=== PATIENT | female | born 1990 | race American Indian/Alaskan Native ===

== ENCOUNTER 2017-12-31 18:52 | Emergency (ER) | payer OTHER ==
[2017-12-31 19:25] VITALS: BP 138/78
[2017-12-31 19:55] LABS: Bacteria,Urine 1+ /HPF (Negative); Bilirubin,Urine NEG (Negative); Blood,Urine MOD (Negative); Color,Urine Yellow (Yellow); Mucus,Urine 2+ /HPF; Urobilinogen,Urine < 2.0 mg/dL (<2.0)
--- NOTE | 2017-12-31 20:38 | XRay Report ---
FINAL REPORT EXAM: XR SPINE LUMBOSACRAL 2-3V HISTORY: lower back pain TECHNIQUE: Three views lumbosacral spine Comparison: None FINDINGS: Normal lumbar lordosis. Vertebral body heights and disc space heights are maintained. No scoliosis. SI joints are open. Sacral arches are intact. There is minimal retrolisthesis L5 on S1. No suspicious calcifications. IMPRESSION: 2 millimeter retrolisthesis L5 on S1. Otherwise, normal plain-film series lumbosacral spine.
[2017-12-31] MEDS ORDERED: ULTRAM PO ONE (22:28)
--- NOTE | 2017-12-31 22:36 | Emergency Department Report ---
ED Back Pain/Injury HPI - General Chief Complaint: Back Pain/Injury Stated Complaint: LOWER BACK PAIN Time Seen by Provider: 12/31/17 22:26 Source: patient, family Limitations: No Limitations - History of Present Illness Initial Comments: pt is a 27 y/o aaf who presents for low back pain and spasm x 1 week after lift large TV by herself with moving, pt describes pain as 4/10 aching spasm exacerbated by bending and twisting there is no numbness no weakness no tingling no swelling no loss or decrease in bowel or bladder function. MD Complaint: back pain Onset/Timin -: week(s) Similar Symptoms Previously: Yes Place: home Radiation: none Severity: moderate Severity scale (0 -10): 4 Quality: aching, other (spasm ) Consistency: intermittent Improves With: other (rest) Worsens With: movement, other (bending twisting ) Context: while lifting Associated Symptoms: denies: weakness, numbness, difficulty walking, incontinence - Related Data Home Medications Medication Instructions Recorded Confirmed Last Taken Citalopram Hydrobromide [Celexa] 20 mg PO DAILY 08/24/14 10/23/14 09/02/14 Previous Rx's Medication Instructions Recorded Last Taken Type Fluticasone [Flonase] 1 spray NS QDAY #1 bottle 08/24/14 09/02/14 Rx Loratadine [Claritin] 10 mg PO DAILY #30 tablet 08/24/14 09/02/14 Rx Doxycycline Monohydrate 100 mg PO Q12H #14 tablet 10/23/14 Unknown Rx HYDROcodone/APAP 5-325 [[place] 1 each PO Q8H PRN #16 tablet 10/23/14 Unknown Rx 5-325 mg TAB] Hydrocortisone 2.5% [Hytone 2.5% 1 applicatio TP BID #15 gm 10/23/14 Unknown Rx CREAM] Diphenoxylate/Atropine [Lomotil] 1 tab PO Q4H PRN #4 tablet 07/06/15 Unknown Rx Cyclobenzaprine [Flexeril] 10 mg PO BID PRN #20 tablet 12/31/17 Unknown Rx Menthol/Camphor [[place] 1 applic TP TID PRN #1 tube 12/31/17 Unknown Rx Ointment] Naproxen [EC-Naprosyn] 500 mg PO BID PRN #30 tablet. 12/31/17 Unknown Rx Allergies Allergy/AdvReac Type Severity Reaction Status Date / Time No Known Allergies Allergy Verified 07/05/15 23:43 ED Review of Systems ROS: Stated complaint: LOWER BACK PAIN Other details as noted in HPI Constitutional: denies: chills, fever Eyes: denies: eye pain, eye discharge, vision change ENT: denies: ear pain, throat pain Respiratory: denies: cough, shortness of breath, wheezing Cardiovascular: denies: chest pain, palpitations Endocrine: no symptoms reported Gastrointestinal: denies: abdominal pain, nausea, diarrhea Genitourinary: denies: urgency, dysuria, discharge Musculoskeletal: back pain, arthralgia. denies: joint swelling, myalgia Skin: denies: rash, lesions Neurological: denies: headache, weakness, paresthesias Psychiatric: denies: anxiety, depression Hematological/Lymphatic: denies: easy bleeding, easy bruising ED Past Medical Hx - Past Medical History Hx Headaches / Migraines: Yes Hx Psychiatric Treatment: Yes (depression) Additional medical history: Eczema - Surgical History Additional Surgical History: X 2 - Social History Smoking Status: Never Smoker Substance Use Type: None - Medications Home Medications: Home Medications Medication Instructions Recorded Confirmed Last Taken Type Citalopram Hydrobromide [Celexa] 20 mg PO DAILY 08/24/14 10/23/14 09/02/14 History Fluticasone [Flonase] 1 spray NS QDAY #1 bottle 08/24/14 10/23/14 09/02/14 Rx Loratadine [Claritin] 10 mg PO DAILY #30 tablet 08/24/14 10/23/14 09/02/14 Rx Doxycycline Monohydrate 100 mg PO Q12H #14 tablet 10/23/14 Unknown Rx HYDROcodone/APAP 5-325 [[place] 1 each PO Q8H PRN #16 tablet 10/23/14 Unknown Rx 5-325 mg TAB] Hydrocortisone 2.5% [Hytone 2.5% 1 applicatio TP BID #15 gm 10/23/14 Unknown Rx CREAM] Diphenoxylate/Atropine [Lomotil] 1 tab PO Q4H PRN #4 tablet 07/06/15 Unknown Rx Cyclobenzaprine [Flexeril] 10 mg PO BID PRN #20 tablet 12/31/17 Unknown Rx Menthol/Camphor [[place] 1 applic TP TID PRN #1 tube 12/31/17 Unknown Rx Ointment] Naproxen [EC-Naprosyn] 500 mg PO BID PRN #30 tablet. 12/31/17 Unknown Rx ED Physical Exam - General Limitations: No Limitations General appearance: alert, in no apparent distress - Head Head exam: Present: atraumatic, normocephalic - Eye Eye exam: Present: normal appearance - ENT ENT exam: Present: mucous membranes moist - Neck Neck exam: Present: normal inspection - Respiratory Respiratory exam: Present: normal lung sounds bilaterally. Absent: respiratory distress - Cardiovascular Cardiovascular Exam: Present: regular rate, normal rhythm. Absent: systolic murmur, diastolic murmur, rubs, gallop - GI/Abdominal GI/Abdominal exam: Present: soft, normal bowel sounds - Rectal Rectal exam: Present: deferred - Extremities Exam Extremities exam: Present: normal inspection, full ROM. Absent: tenderness - Back Exam Back exam: Present: normal inspection, full ROM, tenderness (mild paraspinus muscle tenderness to deep palpation right, no posterior vertebral point tenderness no swelling no deformity no ecchymosis mild pain with straight leg right there is no numbness or weakness no saddle numbness ) - Expanded Back Exam Expanded Back exam: Absent: saddle anesthesia Back exam: Positive Straight Leg Raise: Right, Negative Straight Leg Raising: Left - Neurological Exam Neurological exam: Present: alert, oriented X3 - Expanded Neurological Exam Expanded Patient oriented to: Present: person, place, time Speech: Present: fluid speech Cranial nerves: EOM's Intact: Normal, Gag Reflex: Normal, Tongue Deviation: Normal, Nystagmus: Normal, Facial Sensation: Normal Cerebellar function: Heel to Muse: Normal Upper motor neuron: Jimmy Neglect: Normal, Pronator Drift: Normal, Babinski Sign : Normal, Sensory Extinction: Normal Sensory exam: Lower Extremity Light Touch: Normal, Lower Extremity Temperature: Normal, LE 2 Point Discrimination: Normal Motor strength exam: RUE: 5, LUE: 5, RLE: 5, LLE: 5 DTR: knee (R): 2+, knee (L): 2+, ankle (R): 2+, ankle (L): 2+ Best Eye Response ([place]): (4) open spontaneously Best Motor Response ([place]): (6) obeys commands Best Verbal Response ([place]): (5) oriented [place] Total: 15 - Psychiatric Psychiatric exam: Present: normal affect, normal mood - Skin Skin exam: Present: warm, dry, intact, normal color. Absent: rash ED Course Vital Signs 12/31/17 12/31/17 19:19 19:25 Temperature 98.4 F 98.4 F Pulse Rate 73 72 Respiratory 18 Rate Blood Pressure 138/78 138/78 O2 Sat by Pulse 98 99 Oximetry ED Medical Decision Making - Radiology Data Radiology results: report reviewed, image reviewed 2mm mild l5 s1 retrolisthesis - Medical Decision Making this is a lumbar strain, pt is ambulatory to baseline no weakness no numbness no saddle numbness pain is reproducible to deep palpation, there is no cva tenderness, pt is ending menses, denies dysuria frequency or urgency. Critical care attestation.: If time is entered above; I have spent that time in minutes in the direct care of this critically ill patient, excluding procedure time. ED Disposition Clinical Impression: Lumbar strain Qualifiers: Encounter type: initial encounter Qualified Code(s): S39.012A - Strain of muscle, fascia and tendon of lower back, initial encounter Disposition: - TO HOME OR SELFCARE Is pt being admited?: No Does the pt Need Aspirin: No Condition: Good Instructions: Muscle Strain (ED), Low Back Strain (ED), Core Strengthening Exercises (GEN) Prescriptions: Cyclobenzaprine [Flexeril] 10 mg PO BID PRN #20 tablet PRN Reason: Muscle Spasm Menthol/Camphor [[place] Ointment] 1 applic TP TID PRN #1 tube PRN Reason: Pain , Severe (7-10) Naproxen [EC-Naprosyn] 500 mg PO BID PRN #30 tablet. PRN Reason: Pain Referrals: [facility] [Outside] - 3-5 Days Forms: Work/School Release Form(ED) Time of Disposition: 22:43
== END 2017-12-31 22:50 | disposition home or self-care (01) ==
LOC: ED 18:52
DX: S39.012A Strain of muscle, fascia and tendon of lower back, initial encounter (principal); F32.9 Major depressive disorder, single episode, unspecified; G43.909 Migraine, unspecified, not intractable, without status migrainosus; X50.0XXA Overexertion from strenuous movement or load, initial encounter; Y93.89 Activity, other specified; Y92.89 Other specified places as the place of occurrence of the external cause; Y99.8 Other external cause status
CPT/HCPCS: 72100; 81001; 99284

== ENCOUNTER 2018-01-05 23:33 | Emergency (ER) | payer OTHER ==
[2018-01-06 01:17] LABS: Basophils % (Auto) 0.5 % (0.0-1.8); Eosinophils # (Auto) 0.2 K/mm3 (0.0-0.4); Eosinophils % (Auto) 2.3 % (0.0-4.3); Hematocrit 39.9 % (30.3-42.9); Hemoglobin 12.6 gm/dl (10.1-14.3); Lymphocytes # (Auto) 4.1 K/mm3 (1.2-5.4); Lymphocytes % (Auto) 53.6 % (13.4-35.0); Mean Corpuscular HGB Conc 32 % (30-34); Mean Corpuscular Volume 79 fl (79-97); Monocytes # (Auto) 0.4 K/mm3 (0.0-0.8); Monocytes % (Auto) 5.4 % (0.0-7.3); Platelet Count 388 K/mm3 (140-440); Red Blood Count 5.07 M/mm3 (3.65-5.03); Red Cell Distribution Width 13.6 % (13.2-15.2)
[2018-01-06 01:24] LABS: Mean Corpuscular Hemoglobin 25 pg (28-32)
[2018-01-06 01:34] LABS: BUN/Creatinine Ratio 18; Blood Urea Nitrogen 11 mg/dL (7-17); Calcium 8.5 mg/dL (8.4-10.2); Hemolysis Index 5
[2018-01-06 02:25] LABS: Bilirubin,Urine NEG (Negative); Blood,Urine NEG (Negative); Color,Urine Yellow (Yellow); Mucus,Urine FEW /HPF; Protein,Urine <15 mg/dL mg/dL (Negative); Urobilinogen,Urine < 2.0 mg/dL (<2.0)
[2018-01-06] MEDS ORDERED: TORADOL IM ONE (03:46)
[2018-01-06] MEDS ORDERED: ULTRAM PO ONE (03:46)
[2018-01-06] MEDS ORDERED: MACROBID PO ONE (03:46)
--- NOTE | 2018-01-06 04:27 | Emergency Department Report ---
ED Back Pain/Injury HPI - General Chief Complaint: Back Pain/Injury Stated Complaint: BACK PAIN Time Seen by Provider: 01/06/18 03:09 Source: patient Limitations: No Limitations - History of Present Illness Initial Comments: 27 year old female with a past medical history migraines, depression, and eczema presents to Hospital complaining of lower back pain 2 weeks. Patient was here on the with complaints of back pain times 1 week lifting a heavy TV. She reports that pain has worsened. Pain is constant, aching, worse with palpation and movement. Pain is rated 10/10 in intensity. She denies paresthesia, numbness, weakness, dysuria, fever, nausea, vomiting, or hematuria. She has taken the recently prescribed Naprosyn and Flexeril with some improvement. MD Complaint: back pain - Related Data Home Medications Medication Instructions Recorded Confirmed Last Taken Citalopram Hydrobromide [Celexa] 20 mg PO DAILY 08/24/14 10/23/14 09/02/14 Previous Rx's Medication Instructions Recorded Last Taken Type Fluticasone [Flonase] 1 spray NS QDAY #1 bottle 08/24/14 09/02/14 Rx Loratadine [Claritin] 10 mg PO DAILY #30 tablet 08/24/14 09/02/14 Rx Doxycycline Monohydrate 100 mg PO Q12H #14 tablet 10/23/14 Unknown Rx HYDROcodone/APAP 5-325 [[place] 1 each PO Q8H PRN #16 tablet 10/23/14 Unknown Rx 5-325 mg TAB] Hydrocortisone 2.5% [Hytone 2.5% 1 applicatio TP BID #15 gm 10/23/14 Unknown Rx CREAM] Diphenoxylate/Atropine [Lomotil] 1 tab PO Q4H PRN #4 tablet 07/06/15 Unknown Rx Cyclobenzaprine [Flexeril] 10 mg PO BID PRN #20 tablet 12/31/17 Unknown Rx Menthol/Camphor [[place] 1 applic TP TID PRN #1 tube 12/31/17 Unknown Rx Ointment] Naproxen [EC-Naprosyn] 500 mg PO BID PRN #30 tablet. 12/31/17 Unknown Rx Nitrofurantoin Monohyd/M-Cryst 100 mg PO BID #10 capsule 01/06/18 Unknown Rx [Macrobid 100 mg Capsule] traMADol [Ultram 50 MG tab] 50 mg PO Q6HR PRN #20 tablet 01/06/18 Unknown Rx Allergies Allergy/AdvReac Type Severity Reaction Status Date / Time No Known Allergies Allergy Verified 07/05/15 23:43 ED Review of Systems ROS: Stated complaint: BACK PAIN Other details as noted in HPI Comment: All other systems reviewed and negative ED Past Medical Hx - Past Medical History Previous Medical History?: Yes Hx Headaches / Migraines: Yes Hx Psychiatric Treatment: Yes (depression) Additional medical history: Eczema - Surgical History Past Surgical History?: Yes Additional Surgical History: X 2 - Social History Smoking Status: Current Every Day Smoker Substance Use Type: None - Medications Home Medications: Home Medications Medication Instructions Recorded Confirmed Last Taken Type Citalopram Hydrobromide [Celexa] 20 mg PO DAILY 08/24/14 10/23/14 09/02/14 History Fluticasone [Flonase] 1 spray NS QDAY #1 bottle 08/24/14 10/23/14 09/02/14 Rx Loratadine [Claritin] 10 mg PO DAILY #30 tablet 08/24/14 10/23/14 09/02/14 Rx Doxycycline Monohydrate 100 mg PO Q12H #14 tablet 10/23/14 Unknown Rx HYDROcodone/APAP 5-325 [[place] 1 each PO Q8H PRN #16 tablet 10/23/14 Unknown Rx 5-325 mg TAB] Hydrocortisone 2.5% [Hytone 2.5% 1 applicatio TP BID #15 gm 10/23/14 Unknown Rx CREAM] Diphenoxylate/Atropine [Lomotil] 1 tab PO Q4H PRN #4 tablet 07/06/15 Unknown Rx Cyclobenzaprine [Flexeril] 10 mg PO BID PRN #20 tablet 12/31/17 Unknown Rx Menthol/Camphor [[place] 1 applic TP TID PRN #1 tube 12/31/17 Unknown Rx Ointment] Naproxen [EC-Naprosyn] 500 mg PO BID PRN #30 tablet. 12/31/17 Unknown Rx Nitrofurantoin Monohyd/M-Cryst 100 mg PO BID #10 capsule 01/06/18 Unknown Rx [Macrobid 100 mg Capsule] traMADol [Ultram 50 MG tab] 50 mg PO Q6HR PRN #20 tablet 01/06/18 Unknown Rx ED Physical Exam - General Limitations: No Limitations - Other Other exam information: General: No limitations, patient is alert in no acute distress Head exam: Atraumatic, normocephalic Eyes exam: Normal appearance, pupils equal reactive to light, extraocular movements intact ENT: Moist mucous membrane, normal oropharynx Neck exam: Normal inspection, full range of motion, no meningismus nontender Respiratory exam: Clear to auscultation bilateral, no wheezes, rales, crackles Cardiovascular: Normal rate and rhythm, normal heart sounds Abdomen: Soft, nondistended, and nontender, with normal bowel sounds, no rebound, or guarding Extremity: Full range of motion normal inspection no deformity Back: Normal Inspection, full range of motion, reducible tenderness across lower back muscle Neurologic: Alert, oriented x3, cranial nerves intact, no motor or sensory deficit Psychiatric: normal affect, normal mood Skin: Warm, dry, intact ED Course Vital Signs 01/06/18 01/06/18 01/06/18 00:37 01:12 03:15 Temperature 98.0 F 98 F 98.2 F Pulse Rate 81 74 79 Respiratory 18 18 20 Rate Blood Pressure 150/104 Blood Pressure 150/104 128/79 [Right] O2 Sat by Pulse 97 100 99 Oximetry - Reevaluation(s) Reevaluation #1: 01/06/18 04:24 Patient received Toradol, tramadol, and Macrobid in the ED ED Medical Decision Making - Lab Data Result diagrams: 01/06/18 01:03 01/06/18 01:03 Lab Results 01/06/18 01/06/18 01/06/18 Range/Units 01:03 01:03 01:03 WBC 7.7 (4.5-11.0) K/mm3 RBC 5.07 H (3.65-5.03) M/mm3 Hgb 12.6 (10.1-14.3) gm/dl Hct 39.9 (30.3-42.9) % MCV 79 (79-97) fl MCH 25 L (28-32) pg MCHC 32 (30-34) % RDW 13.6 (13.2-15.2) % Plt Count 388 (140-440) K/mm3 Lymph % (Auto) 53.6 H (13.4-35.0) % [place] % (Auto) 5.4 (0.0-7.3) % Eos % (Auto) 2.3 (0.0-4.3) % Baso % (Auto) 0.5 (0.0-1.8) % Lymph # 4.1 (1.2-5.4) K/mm3 [place] # 0.4 (0.0-0.8) K/mm3 Eos # 0.2 (0.0-0.4) K/mm3 Baso # 0.0 (0.0-0.1) K/mm3 Seg Neutrophils % 38.2 L (40.0-70.0) % Seg Neutrophils # 2.9 (1.8-7.7) K/mm3 Sodium 137 (137-145) mmol/L Potassium 4.3 (3.6-5.0) mmol/L Chloride 100.1 (98-107) mmol/L Carbon Dioxide 26 (22-30) mmol/L Anion Gap 15 mmol/L BUN 11 (7-17) mg/dL Creatinine 0.6 L (0.7-1.2) mg/dL Estimated GFR > 60 ml/min BUN/Creatinine Ratio 18 % Glucose 88 (65-100) mg/dL Calcium 8.5 (8.4-10.2) mg/dL HCG, Qual Negative (Negative) Urine Color (Yellow) Urine Turbidity (Clear) Urine pH (5.0-7.0) Ur Specific [place] (1.003-1.030) Urine Protein (Negative) mg/dL Urine Glucose (UA) (Negative) mg/dL Urine Ketones (Negative) mg/dL Urine Blood (Negative) Urine Nitrite (Negative) Urine Bilirubin (Negative) Urine Urobilinogen (<2.0) mg/dL Ur Leukocyte Esterase (Negative) Urine WBC (Auto) (0.0-6.0) /HPF Urine RBC (Auto) (0.0-6.0) /HPF U Epithel Cells (Auto) (0-13.0) /HPF Urine Mucus /HPF 01/06/18 Range/Units 02:05 WBC (4.5-11.0) K/mm3 RBC (3.65-5.03) M/mm3 Hgb (10.1-14.3) gm/dl Hct (30.3-42.9) % MCV (79-97) fl MCH (28-32) pg MCHC (30-34) % RDW (13.2-15.2) % Plt Count (140-440) K/mm3 Lymph % (Auto) (13.4-35.0) % [place] % (Auto) (0.0-7.3) % Eos % (Auto) (0.0-4.3) % Baso % (Auto) (0.0-1.8) % Lymph # (1.2-5.4) K/mm3 [place] # (0.0-0.8) K/mm3 Eos # (0.0-0.4) K/mm3 Baso # (0.0-0.1) K/mm3 Seg Neutrophils % (40.0-70.0) % Seg Neutrophils # (1.8-7.7) K/mm3 Sodium (137-145) mmol/L Potassium (3.6-5.0) mmol/L Chloride (98-107) mmol/L Carbon Dioxide (22-30) mmol/L Anion Gap mmol/L BUN (7-17) mg/dL Creatinine (0.7-1.2) mg/dL Estimated GFR ml/min BUN/Creatinine Ratio % Glucose (65-100) mg/dL Calcium (8.4-10.2) mg/dL HCG, Qual (Negative) Urine Color Yellow (Yellow) Urine Turbidity Clear (Clear) Urine pH 5.0 (5.0-7.0) Ur Specific [place] 1.021 (1.003-1.030) Urine Protein <15 mg/dl (Negative) mg/dL Urine Glucose (UA) Neg (Negative) mg/dL Urine Ketones Neg (Negative) mg/dL Urine Blood Neg (Negative) Urine Nitrite Neg (Negative) Urine Bilirubin Neg (Negative) Urine Urobilinogen < 2.0 (<2.0) mg/dL Ur Leukocyte Esterase Tr (Negative) Urine WBC (Auto) 10.0 H (0.0-6.0) /HPF Urine RBC (Auto) 5.0 (0.0-6.0) /HPF U Epithel Cells (Auto) 8.0 (0-13.0) /HPF Urine Mucus Few /HPF - Medical Decision Making Patient will be provided tramadol for additional pain relief for muscle skeletal back pain. Urine suggested a UTI today and therefore patient will be treated. Blood pressure improved spontaneously - Differential Diagnosis UTI, renal colic, , muscle strain Critical Care Time: No Critical care attestation.: If time is entered above; I have spent that time in minutes in the direct care of this critically ill patient, excluding procedure time. ED Disposition Clinical Impression: UTI (urinary tract infection), Lumbar strain Disposition: TO HOME OR SELFCARE Is pt being admited?: No Does the pt Need Aspirin: No Condition: Stable Instructions: Low Back Strain (ED), Urinary Tract Infection in Women (ED) Additional Instructions: Continue current medication as prescribed in addition to this medication as needed for pain. Return if symptoms worsen. Tramadol may cause drowsiness as well so do not drive while taking this medications Prescriptions: Nitrofurantoin Monohyd/M-Cryst [Macrobid 100 mg Capsule] 100 mg PO BID #10 capsule traMADol [Ultram 50 MG tab] 50 mg PO Q6HR PRN #20 tablet PRN Reason: Pain Referrals: SARAH SANON MD [Primary Care Provider] - 3-5 Days Time of Disposition: 04:27
[2018-01-06 04:37] VITALS: BP 116/82
== END 2018-01-06 04:41 | disposition home or self-care (01) ==
LOC: ED 23:33
DX: S39.012A Strain of muscle, fascia and tendon of lower back, initial encounter (principal); N39.0 Urinary tract infection, site not specified; F32.9 Major depressive disorder, single episode, unspecified; G43.909 Migraine, unspecified, not intractable, without status migrainosus; F17.200 Nicotine dependence, unspecified, uncomplicated; X50.0XXA Overexertion from strenuous movement or load, initial encounter; Y93.89 Activity, other specified; Y92.89 Other specified places as the place of occurrence of the external cause; Y99.8 Other external cause status
CPT/HCPCS: 36415; 80048; 81001; 84703; 85025; 96372; 99283; J1885

== ENCOUNTER 2018-02-26 09:09 | Emergency (ER) | payer OTHER ==
[2018-02-26 09:30] VITALS: BP 132/78
--- NOTE | 2018-02-26 10:57 | Emergency Department Report ---
ED Female HPI - General Chief complaint: Urogenital-Female Stated complaint: POSS UTI Time Seen by Provider: 02/26/18 10:45 Source: patient Mode of arrival: Ambulatory Limitations: No Limitations - History of Present Illness Initial comments: This is a 28-year-old -[place] female who presents with dysuria, urgency , and frequency for 3 days. Patient reports taking Azo without relief of symptoms. A test at home over the weekend and an went to the clinic Monday to confirm . They did an ultrasound and it was negative for . Patient's last menstrual period was 01/26/2008. A1. Denies vaginal discharge or bleeding, lower abdominal or low back pain. MD Complaint: dysuria -: days(s) (3 days) Severity: mild Severity scale (0 -10): 3 Quality: burning Consistency: intermittent Improves with: none Worsens with: urination Are you Now?: No (positive test at home) Last Menstrual Period: 01/25/18 EDC: 11/01/18 Associated Symptoms: denies other symptoms - Related Data Sexually active: Yes : 2 Para: 1 A: 1 Home Medications Medication Instructions Recorded Confirmed Last Taken Citalopram Hydrobromide [Celexa] 20 mg PO DAILY 08/24/14 10/23/14 09/02/14 Previous Rx's Medication Instructions Recorded Last Taken Type Fluticasone [Flonase] 1 spray NS QDAY #1 bottle 08/24/14 09/02/14 Rx Loratadine [Claritin] 10 mg PO DAILY #30 tablet 08/24/14 09/02/14 Rx Doxycycline Monohydrate 100 mg PO Q12H #14 tablet 10/23/14 Unknown Rx HYDROcodone/APAP 5-325 [[place] 1 each PO Q8H PRN #16 tablet 10/23/14 Unknown Rx 5-325 mg TAB] Hydrocortisone 2.5% [Hytone 2.5% 1 applicatio TP BID #15 gm 10/23/14 Unknown Rx CREAM] Diphenoxylate/Atropine [Lomotil] 1 tab PO Q4H PRN #4 tablet 07/06/15 Unknown Rx Cyclobenzaprine [Flexeril] 10 mg PO BID PRN #20 tablet 12/31/17 Unknown Rx Menthol/Camphor [[place] 1 applic TP TID PRN #1 tube 12/31/17 Unknown Rx Ointment] Naproxen [EC-Naprosyn] 500 mg PO BID PRN #30 tablet. 12/31/17 Unknown Rx Nitrofurantoin Monohyd/M-Cryst 100 mg PO BID #10 capsule 01/06/18 Unknown Rx [Macrobid 100 mg Capsule] traMADol [Ultram 50 MG tab] 50 mg PO Q6HR PRN #20 tablet 01/06/18 Unknown Rx Phenazopyridine [Pyridium] 200 mg PO TID #6 tab 02/26/18 Unknown Rx Sulfamethoxazole/Trimethoprim 1 each PO BID #6 tablet 02/26/18 Unknown Rx [Bactrim DS TAB] Allergies Allergy/AdvReac Type Severity Reaction Status Date / Time No Known Allergies Allergy Verified 07/05/15 23:43 ED Review of Systems ROS: Stated complaint: POSS UTI Other details as noted in HPI ED Past Medical Hx - Past Medical History Previous Medical History?: Yes Hx Headaches / Migraines: Yes Hx Psychiatric Treatment: Yes (depression) Additional medical history: Eczema - Surgical History Past Surgical History?: Yes Additional Surgical History: X 2 - Social History Smoking Status: Never Smoker Substance Use Type: None - Medications Home Medications: Home Medications Medication Instructions Recorded Confirmed Last Taken Type Citalopram Hydrobromide [Celexa] 20 mg PO DAILY 08/24/14 10/23/14 09/02/14 History Fluticasone [Flonase] 1 spray NS QDAY #1 bottle 08/24/14 10/23/14 09/02/14 Rx Loratadine [Claritin] 10 mg PO DAILY #30 tablet 08/24/14 10/23/14 09/02/14 Rx Doxycycline Monohydrate 100 mg PO Q12H #14 tablet 10/23/14 Unknown Rx HYDROcodone/APAP 5-325 [[place] 1 each PO Q8H PRN #16 tablet 10/23/14 Unknown Rx 5-325 mg TAB] Hydrocortisone 2.5% [Hytone 2.5% 1 applicatio TP BID #15 gm 10/23/14 Unknown Rx CREAM] Diphenoxylate/Atropine [Lomotil] 1 tab PO Q4H PRN #4 tablet 07/06/15 Unknown Rx Cyclobenzaprine [Flexeril] 10 mg PO BID PRN #20 tablet 12/31/17 Unknown Rx Menthol/Camphor [[place] 1 applic TP TID PRN #1 tube 12/31/17 Unknown Rx Ointment] Naproxen [EC-Naprosyn] 500 mg PO BID PRN #30 tablet. 12/31/17 Unknown Rx Nitrofurantoin Monohyd/M-Cryst 100 mg PO BID #10 capsule 01/06/18 Unknown Rx [Macrobid 100 mg Capsule] traMADol [Ultram 50 MG tab] 50 mg PO Q6HR PRN #20 tablet 01/06/18 Unknown Rx Phenazopyridine [Pyridium] 200 mg PO TID #6 tab 02/26/18 Unknown Rx Sulfamethoxazole/Trimethoprim 1 each PO BID #6 tablet 02/26/18 Unknown Rx [Bactrim DS TAB] ED Physical Exam - General Limitations: No Limitations ED Course Vital Signs 02/26/18 09:25 Temperature 98.7 F Pulse Rate 88 Respiratory 18 Rate Blood Pressure 132/78 O2 Sat by Pulse 98 Oximetry ED Medical Decision Making - Medical Decision Making This is a 28-year-old -[place] female who presents with urgency, frequency, and dysuria for 3 days. Patient was examined by me. Vitals are normal and in no acute distress. Urinalysis obtained and positive nitrates, leukocytes, and WBC's. Start bactrim DS po bid x 3 days and pyridium 200 mg po tid x 2 days for acute Cystitis. Reviewed plan with patient and she agreed with plan. Discharged home in stable condition. F/U with PCP in 2-3 days. Critical care attestation.: If time is entered above; I have spent that time in minutes in the direct care of this critically ill patient, excluding procedure time. ED Disposition Clinical Impression: Acute cystitis Qualifiers: Hematuria presence: with hematuria Qualified Code(s): N30.01 - Acute cystitis with hematuria Disposition: TO HOME OR SELFCARE Is pt being admited?: No Does the pt Need Aspirin: No Condition: Stable Instructions: Urinary Tract Infection in Women (ED), Dysuria (ED) Additional Instructions: Avoid drinking alcohol while taking antibiotics and for 24 hours after completion. Continue safe sexual intercourse. Increase fluid intake to 1-2 L daily. Follow up with Primary Care Provider in 2-3 days. Prescriptions: Phenazopyridine [Pyridium] 200 mg PO TID #6 tab Sulfamethoxazole/Trimethoprim [Bactrim DS TAB] 1 each PO BID #6 tablet Referrals: [facility] [Outside] - 3-5 Days [facility] [Outside] - 3-5 Days [facility] [Outside] - 3-5 Days Time of Disposition: 11:57 Print Language: [place]
[2018-02-26 11:38] LABS: Bacteria,Urine 1+ /HPF (Negative); Bilirubin,Urine NEG (Negative); Blood,Urine NEG (Negative); Color,Urine Amber (Yellow); Mucus,Urine FEW /HPF; Protein,Urine <15 mg/dL mg/dL (Negative)
== END 2018-02-26 12:08 | disposition home or self-care (01) ==
LOC: ED 09:09
DX: N30.01 Acute cystitis with hematuria (principal); G43.909 Migraine, unspecified, not intractable, without status migrainosus
CPT/HCPCS: 81001

== ENCOUNTER 2018-03-01 17:25 | Emergency (ER) | payer OTHER ==
[2018-03-01 17:43] VITALS: BP 136/80
[2018-03-01 17:53] LABS: Bacteria,Urine 2+ /HPF (Negative); Bilirubin,Urine NEG (Negative); Blood,Urine NEG (Negative); Color,Urine Yellow (Yellow); Protein,Urine <15 mg/dL mg/dL (Negative)
[2018-03-01] MEDS ORDERED: XYLOCAINE 1% MPF 5 mL INFILTRATI ONE (19:52)
[2018-03-01] MEDS ORDERED: ROCEPHIN IM ONE (19:52)
--- NOTE | 2018-03-01 19:53 | Emergency Department Report ---
ED Female HPI - General Chief complaint: Urogenital-Female Stated complaint: POSSIBLE UTI Time Seen by Provider: 03/01/18 19:34 Source: patient Mode of arrival: Ambulatory Limitations: No Limitations - History of Present Illness Initial comments: This is a 28-year-old female nontoxic, well nourished in appearance, no acute signs of distress presents to the ED with c/o of dysuria. Patient stated that she was just seen on 02/26/2018 and received Bactrim for a UTI symptoms has never resolved. Patient denies any vaginal discharge or ulcers or lesions. Patient denies any abdominal pain or back pain or pelvic pain. Patient denies any vaginal bleeding. Patient denies any nausea, vomiting, chest pain, shortness of breathe, fever, chills, headache, back pain, numbness, tingling, stiff neck. Patient denies any other urinary symptoms. Patient denies any allergies or PMH. MD Complaint: dysuria -: days(s) (4) Radiation: non-radiating Severity: mild Severity scale (0 -10): 8 Quality: burning Consistency: constant Improves with: none Worsens with: urination Are you Now?: No Associated Symptoms: dysuria. denies: vaginal discharge, vaginal bleeding, abdominal pain, nausea/vomiting, fever/chills, headaches, loss of appetite, hematuria, rash, seizure, shortness of breath, syncope, weakness - Related Data Home Medications Medication Instructions Recorded Confirmed Last Taken Citalopram Hydrobromide [Celexa] 20 mg PO DAILY 08/24/14 10/23/14 09/02/14 Previous Rx's Medication Instructions Recorded Last Taken Type Fluticasone [Flonase] 1 spray NS QDAY #1 bottle 08/24/14 09/02/14 Rx Loratadine [Claritin] 10 mg PO DAILY #30 tablet 08/24/14 09/02/14 Rx Doxycycline Monohydrate 100 mg PO Q12H #14 tablet 10/23/14 Unknown Rx HYDROcodone/APAP 5-325 [[place] 1 each PO Q8H PRN #16 tablet 10/23/14 Unknown Rx 5-325 mg TAB] Hydrocortisone 2.5% [Hytone 2.5% 1 applicatio TP BID #15 gm 10/23/14 Unknown Rx CREAM] Diphenoxylate/Atropine [Lomotil] 1 tab PO Q4H PRN #4 tablet 07/06/15 Unknown Rx Cyclobenzaprine [Flexeril] 10 mg PO BID PRN #20 tablet 12/31/17 Unknown Rx Menthol/Camphor [[place] 1 applic TP TID PRN #1 tube 12/31/17 Unknown Rx Ointment] Naproxen [EC-Naprosyn] 500 mg PO BID PRN #30 tablet.dr 12/31/17 Unknown Rx Nitrofurantoin Monohyd/M-Cryst 100 mg PO BID #10 capsule 01/06/18 Unknown Rx [Macrobid 100 mg Capsule] traMADol [Ultram 50 MG tab] 50 mg PO Q6HR PRN #20 tablet 01/06/18 Unknown Rx Phenazopyridine [Pyridium] 200 mg PO TID #6 tab 02/26/18 Unknown Rx Sulfamethoxazole/Trimethoprim 1 each PO BID #6 tablet 02/26/18 Unknown Rx [Bactrim DS TAB] Nitrofurantoin [place]/M-Cryst 100 mg PO Q12HR #14 capsule 03/01/18 Unknown Rx [Macrobid CAP] Allergies Allergy/AdvReac Type Severity Reaction Status Date / Time No Known Allergies Allergy Verified 03/01/18 17:39 ED Review of Systems ROS: Stated complaint: POSSIBLE UTI Other details as noted in HPI Constitutional: denies: chills, fever Eyes: denies: eye pain, eye discharge, vision change ENT: denies: ear pain, throat pain Respiratory: denies: cough, shortness of breath, wheezing Cardiovascular: denies: chest pain, palpitations Endocrine: no symptoms reported Gastrointestinal: denies: abdominal pain, nausea, diarrhea Genitourinary: dysuria. denies: urgency, frequency, hematuria, discharge Musculoskeletal: denies: back pain, joint swelling, arthralgia Skin: denies: rash, lesions Neurological: denies: headache, weakness, paresthesias Psychiatric: denies: anxiety, depression Hematological/Lymphatic: denies: easy bleeding, easy bruising ED Past Medical Hx - Past Medical History Hx Headaches / Migraines: Yes Hx Psychiatric Treatment: Yes (depression) Additional medical history: Eczema - Surgical History Additional Surgical History: X 2 - Social History Smoking Status: Never Smoker Substance Use Type: None - Medications Home Medications: Home Medications Medication Instructions Recorded Confirmed Last Taken Type Citalopram Hydrobromide [Celexa] 20 mg PO DAILY 08/24/14 10/23/14 09/02/14 History Fluticasone [Flonase] 1 spray NS QDAY #1 bottle 08/24/14 10/23/14 09/02/14 Rx Loratadine [Claritin] 10 mg PO DAILY #30 tablet 08/24/14 10/23/14 09/02/14 Rx Doxycycline Monohydrate 100 mg PO Q12H #14 tablet 10/23/14 Unknown Rx HYDROcodone/APAP 5-325 [[place] 1 each PO Q8H PRN #16 tablet 10/23/14 Unknown Rx 5-325 mg TAB] Hydrocortisone 2.5% [Hytone 2.5% 1 applicatio TP BID #15 gm 10/23/14 Unknown Rx CREAM] Diphenoxylate/Atropine [Lomotil] 1 tab PO Q4H PRN #4 tablet 07/06/15 Unknown Rx Cyclobenzaprine [Flexeril] 10 mg PO BID PRN #20 tablet 12/31/17 Unknown Rx Menthol/Camphor [[place] 1 applic TP TID PRN #1 tube 12/31/17 Unknown Rx Ointment] Naproxen [EC-Naprosyn] 500 mg PO BID PRN #30 tablet. 12/31/17 Unknown Rx Nitrofurantoin Monohyd/M-Cryst 100 mg PO BID #10 capsule 01/06/18 Unknown Rx [Macrobid 100 mg Capsule] traMADol [Ultram 50 MG tab] 50 mg PO Q6HR PRN #20 tablet 01/06/18 Unknown Rx Phenazopyridine [Pyridium] 200 mg PO TID #6 tab 02/26/18 Unknown Rx Sulfamethoxazole/Trimethoprim 1 each PO BID #6 tablet 02/26/18 Unknown Rx [Bactrim DS TAB] Nitrofurantoin [place]/M-Cryst 100 mg PO Q12HR #14 capsule 03/01/18 Unknown Rx [Macrobid CAP] ED Physical Exam - General Limitations: No Limitations General appearance: alert, in no apparent distress - Head Head exam: Present: atraumatic, normocephalic - Eye Eye exam: Present: normal appearance Pupils: Present: normal accommodation - ENT ENT exam: Present: normal exam, mucous membranes moist - Neck Neck exam: Present: normal inspection, full ROM. Absent: tenderness, meningismus, lymphadenopathy - Respiratory Respiratory exam: Present: normal lung sounds bilaterally. Absent: respiratory distress, wheezes, rales, rhonchi, stridor, chest wall tenderness, accessory muscle use, decreased breath sounds, prolonged expiratory - Cardiovascular Cardiovascular Exam: Present: regular rate, normal rhythm, normal heart sounds. Absent: bradycardia, tachycardia, irregular rhythm, systolic murmur, diastolic murmur, rubs, gallop - GI/Abdominal GI/Abdominal exam: Present: soft, normal bowel sounds. Absent: distended, tenderness, guarding, rebound, rigid, diminished bowel sounds - Rectal Rectal exam: Present: deferred - Extremities Exam Extremities exam: Present: normal inspection, full ROM, normal capillary refill - Back Exam Back exam: Present: normal inspection, full ROM. Absent: tenderness, CVA tenderness (R), CVA tenderness (L), muscle spasm, paraspinal tenderness, vertebral tenderness, rash noted - Neurological Exam Neurological exam: Present: alert, oriented X3, normal gait - Psychiatric Psychiatric exam: Present: normal affect, normal mood - Skin Skin exam: Present: warm, dry, intact, normal color. Absent: rash ED Course Vital Signs 03/01/18 17:39 Temperature 98.6 F Pulse Rate 90 Respiratory 18 Rate Blood Pressure 136/80 O2 Sat by Pulse 100 Oximetry - Reevaluation(s) Reevaluation #1: 03/01/18 19:53 Patient is speaking in full sentences with no signs of distress noted. ED Medical Decision Making - Medical Decision Making This is a 28-year-old female that presents with dysuria. Patient is stable was examined by me. There is no abdominal tenderness. No pelvic pain. UA obtained and indicates the elevated leukocytes and WBCs. There is a positive test. Patient received 1 g of Rocephin IM. I will discharge patient with Macrobid. Patient denies any vaginal discharge or vaginal symptoms. Urine culture sent and pending. Patient was instructed to Follow-up with a primary care doctor in 3-5 days or if symptoms worsen and continue return to emergency room as soon as possible. At time of discharge, the patient does not seem toxic or ill in appearance. No acute signs of distress noted. Patient agrees to discharge treatment plan of care. No further questions noted by the patient. Critical care attestation.: If time is entered above; I have spent that time in minutes in the direct care of this critically ill patient, excluding procedure time. ED Disposition Clinical Impression: UTI (urinary tract infection) Qualifiers: Urinary tract infection type: site unspecified Hematuria presence: without hematuria Qualified Code(s): N39.0 - Urinary tract infection, site not specified Disposition: TO HOME OR SELFCARE Is pt being admited?: No Does the pt Need Aspirin: No Condition: Stable Instructions: Urinary Tract Infection in Women (ED) Additional Instructions: Follow-up with a primary care doctor in 3-5 days or if symptoms worsen and continue return to emergency room as soon as possible. Prescriptions: Nitrofurantoin [place]/M-Cryst [Macrobid CAP] 100 mg PO Q12HR #14 capsule Referrals: PRIMARY CAREMD [Primary Care Provider] - 3-5 Days JOSE MURPHY MD [Staff Physician] - 3-5 Days [facility] [Outside] - 3-5 Days [facility] [Outside] - 3-5 Days Forms: Work/School Release Form(ED)
[2018-03-01 20:00] LABS: HCG Qualitative,Urine Positive (Negative)
== END 2018-03-01 20:16 | disposition home or self-care (01) ==
LOC: ED 17:25
DX: N39.0 Urinary tract infection, site not specified (principal); G43.909 Migraine, unspecified, not intractable, without status migrainosus
CPT/HCPCS: 81001; 81025; 87086; 96372; 99283; J0696

== ENCOUNTER 2018-06-19 15:56 | Emergency (ER) | payer OTHER ==
[2018-06-19 17:01] VITALS: BP 152/73
[2018-06-19 17:39] LABS: Bacteria,Urine 1+ /HPF (Negative); Bilirubin,Urine NEG (Negative); Blood,Urine MOD (Negative); Color,Urine Amber (Yellow); Mucus,Urine FEW /HPF
[2018-06-19 17:40] LABS: HCG Qualitative,Urine Positive (Negative)
[2018-06-19 17:41] LABS: WBC,Urine > 182.0 /HPF (0.0-6.0)
--- NOTE | 2018-06-19 18:47 | Emergency Department Report ---
ED Female HPI - General Chief complaint: Urogenital-Female Stated complaint: UTI Time Seen by Provider: 06/19/18 18:40 Source: patient Mode of arrival: Ambulatory Limitations: No Limitations - History of Present Illness Initial comments: UTI sx x a few days. No fever, abd or back/flank pain. Recent + test, does not want eval for this. Complaint: dysuria -: Gradual, days(s) Location: suprapubic Radiation: non-radiating Severity: moderate Quality: sharp Consistency: constant Improves with: none Worsens with: urination Are you Now?: Yes Associated Symptoms: dysuria. denies: nausea/vomiting - Related Data Sexually active: Yes Home Medications Medication Instructions Recorded Confirmed Last Taken Citalopram Hydrobromide [Celexa] 20 mg PO DAILY 08/24/14 10/23/14 09/02/14 Previous Rx's Medication Instructions Recorded Last Taken Type Fluticasone [Flonase] 1 spray NS QDAY #1 bottle 08/24/14 09/02/14 Rx Loratadine [Claritin] 10 mg PO DAILY #30 tablet 08/24/14 09/02/14 Rx Doxycycline Monohydrate 100 mg PO Q12H #14 tablet 10/23/14 Unknown Rx HYDROcodone/APAP 5-325 [[place] 1 each PO Q8H PRN #16 tablet 10/23/14 Unknown Rx 5-325 mg TAB] Hydrocortisone 2.5% [Hytone 2.5% 1 applicatio TP BID #15 gm 10/23/14 Unknown Rx CREAM] Diphenoxylate/Atropine [Lomotil] 1 tab PO Q4H PRN #4 tablet 07/06/15 Unknown Rx Cyclobenzaprine [Flexeril] 10 mg PO BID PRN #20 tablet 12/31/17 Unknown Rx Menthol/Camphor [[place] 1 applic TP TID PRN #1 tube 12/31/17 Unknown Rx Ointment] Naproxen [EC-Naprosyn] 500 mg PO BID PRN #30 tablet. 12/31/17 Unknown Rx Nitrofurantoin Monohyd/M-Cryst 100 mg PO BID #10 capsule 01/06/18 Unknown Rx [Macrobid 100 mg Capsule] traMADol [Ultram 50 MG tab] 50 mg PO Q6HR PRN #20 tablet 01/06/18 Unknown Rx Phenazopyridine [Pyridium] 200 mg PO TID #6 tab 02/26/18 Unknown Rx Sulfamethoxazole/Trimethoprim 1 each PO BID #6 tablet 02/26/18 Unknown Rx [Bactrim DS TAB] Nitrofurantoin [place]/M-Cryst 100 mg PO Q12HR #14 capsule 03/01/18 Unknown Rx [Macrobid CAP] Cephalexin [Keflex] 500 mg PO BID #14 capsule 06/19/18 Unknown Rx Allergies Allergy/AdvReac Type Severity Reaction Status Date / Time No Known Allergies Allergy Verified 03/01/18 17:39 ED Review of Systems ROS: Stated complaint: UTI Other details as noted in HPI Comment: All other systems reviewed and negative Constitutional: denies: chills, fever Eyes: denies: eye pain, eye discharge, vision change ENT: denies: ear pain, throat pain Respiratory: denies: cough, shortness of breath, wheezing Cardiovascular: denies: chest pain, palpitations Endocrine: no symptoms reported Gastrointestinal: denies: abdominal pain, nausea, diarrhea Genitourinary: urgency, dysuria, frequency. denies: discharge Musculoskeletal: denies: back pain, joint swelling, arthralgia Skin: denies: rash, lesions Neurological: denies: headache, weakness, paresthesias Psychiatric: denies: anxiety, depression Hematological/Lymphatic: denies: easy bleeding, easy bruising ED Past Medical Hx - Past Medical History Hx Headaches / Migraines: Yes Hx Psychiatric Treatment: Yes (depression) Additional medical history: Eczema - Surgical History Additional Surgical History: X 2 - Social History Smoking Status: Never Smoker Substance Use Type: None - Medications Home Medications: Home Medications Medication Instructions Recorded Confirmed Last Taken Type Citalopram Hydrobromide [Celexa] 20 mg PO DAILY 08/24/14 10/23/14 09/02/14 History Fluticasone [Flonase] 1 spray NS QDAY #1 bottle 08/24/14 10/23/14 09/02/14 Rx Loratadine [Claritin] 10 mg PO DAILY #30 tablet 08/24/14 10/23/14 09/02/14 Rx Doxycycline Monohydrate 100 mg PO Q12H #14 tablet 10/23/14 Unknown Rx HYDROcodone/APAP 5-325 [[place] 1 each PO Q8H PRN #16 tablet 10/23/14 Unknown Rx 5-325 mg TAB] Hydrocortisone 2.5% [Hytone 2.5% 1 applicatio TP BID #15 gm 10/23/14 Unknown Rx CREAM] Diphenoxylate/Atropine [Lomotil] 1 tab PO Q4H PRN #4 tablet 07/06/15 Unknown Rx Cyclobenzaprine [Flexeril] 10 mg PO BID PRN #20 tablet 12/31/17 Unknown Rx Menthol/Camphor [[place] 1 applic TP TID PRN #1 tube 12/31/17 Unknown Rx Ointment] Naproxen [EC-Naprosyn] 500 mg PO BID PRN #30 tablet.dr 12/31/17 Unknown Rx Nitrofurantoin Monohyd/M-Cryst 100 mg PO BID #10 capsule 01/06/18 Unknown Rx [Macrobid 100 mg Capsule] traMADol [Ultram 50 MG tab] 50 mg PO Q6HR PRN #20 tablet 01/06/18 Unknown Rx Phenazopyridine [Pyridium] 200 mg PO TID #6 tab 02/26/18 Unknown Rx Sulfamethoxazole/Trimethoprim 1 each PO BID #6 tablet 02/26/18 Unknown Rx [Bactrim DS TAB] Nitrofurantoin [place]/M-Cryst 100 mg PO Q12HR #14 capsule 03/01/18 Unknown Rx [Macrobid CAP] Cephalexin [Keflex] 500 mg PO BID #14 capsule 06/19/18 Unknown Rx ED Physical Exam - General Limitations: No Limitations General appearance: alert, in no apparent distress - Head Head exam: Present: atraumatic, normocephalic - Eye Eye exam: Present: normal appearance - ENT ENT exam: Present: mucous membranes moist - Neck Neck exam: Present: normal inspection - Respiratory Respiratory exam: Present: normal lung sounds bilaterally. Absent: respiratory distress - Cardiovascular Cardiovascular Exam: Present: regular rate, normal rhythm. Absent: systolic murmur, diastolic murmur, rubs, gallop - GI/Abdominal GI/Abdominal exam: Present: soft, normal bowel sounds. Absent: tenderness, guarding, rebound - Extremities Exam Extremities exam: Present: normal inspection - Back Exam Back exam: Present: normal inspection. Absent: CVA tenderness (R), CVA tenderness (L) - Neurological Exam Neurological exam: Present: alert, oriented X3 - Psychiatric Psychiatric exam: Present: normal affect, normal mood - Skin Skin exam: Present: warm, dry, intact, normal color. Absent: rash ED Course Vital Signs 06/19/18 16:52 Temperature 98.6 F Pulse Rate 97 H Respiratory 16 Rate Blood Pressure 152/73 O2 Sat by Pulse 100 Oximetry ED Medical Decision Making - Lab Data UA shows UTI. UPT + - Medical Decision Making UTI sx x 3 days, UA confirms. Will treat. + preg test, f/u advised. - Differential Diagnosis UTI, Critical care attestation.: If time is entered above; I have spent that time in minutes in the direct care of this critically ill patient, excluding procedure time. ED Disposition Clinical Impression: Positive test UTI (urinary tract infection) Qualifiers: Urinary tract infection type: acute cystitis Hematuria presence: with hematuria Qualified Code(s): N30.01 - Acute cystitis with hematuria Disposition: TO HOME OR SELFCARE Is pt being admited?: No Condition: Good Instructions: Urinary Tract Infection in Women (ED) Prescriptions: Cephalexin [Keflex] 500 mg PO BID #14 capsule Referrals: JS BUSTOS MD [Staff Physician] - 3-5 Days Time of Disposition: 18:46
== END 2018-06-19 18:52 | disposition home or self-care (01) ==
LOC: ED 15:56
DX: O23.11 Infections of bladder in pregnancy, first trimester (principal); G43.909 Migraine, unspecified, not intractable, without status migrainosus; Z3A.01 Less than 8 weeks gestation of pregnancy
CPT/HCPCS: 81001; 81025; 87086; 99283